=== PATIENT | female | born 1950 | race Caucasian/White ===

== ENCOUNTER 2019-07-18 12:45 | Inpatient (IN) | payer MEDICARE, OTHER ==
--- NOTE | 2019-07-13 16:39 | HP ---
AMENDED REPORT NOW INCLUDES DESIGNATED COSIGNER - ESIGNED BEFORE ADJUSTMENTS PREOPERATIVE HISTORY AND PHYSICAL: DATE OF ADMISSION/SURGERY: 07/18/19 SURGEON: Dr. Brigida Garnica.* (DICTATED BY JACK Ruth) PROCEDURE: Left total knee arthroplasty. CHIEF COMPLAINT: Left knee pain. HISTORY OF PRESENT ILLNESS: The patient is a 69-year-old female followed by Dr. Garnica with 3 years of knee pain. Over the last 6 months, this has become progressively worse to the point that she has difficulty walking more than 2 blocks. Her daily ache is 6/10, but with stair climbing or raising up out of a chair, it goes to a 10/10. She has tried conservative treatments such as a cane , brace wearing, antiinflammatories, physical therapy, and steroid injections without improvement and is seeking surgical intervention with Dr. Garnica at this time. PAST MEDICAL HISTORY: Hypertension, phlebitis, atrial fibrillation, asthma, osteoarthritis, thyroid issues, depression, and left lower extremity DVT. PAST SURGICAL HISTORY: Right knee arthroplasty in 2015, bilateral basal joint replacement, and diaphragmatic hernia repair. She denies anesthetic complication with any of these procedures. CURRENT MEDICATIONS: 1. Albuterol sulfate HFA 108 (90 base) mcg/act 2 puffs by mouth p.r.n. 2. Vitamin D3 50,000 units 1 capsule by mouth once weekly. 3. Calcium 600 mg 2 tabs by mouth daily. 4. EpiPen 2-Pankaj 0.3 mg/0.3 mL p.r.n. anaphylaxis. 5. Lexapro 20 mg 1 tab by mouth daily. 6. Lisinopril 20 mg 1 tab by mouth daily. 7. Montelukast sodium 10 mg 1 tab by mouth daily. 8. Omeprazole 20 mg 1 tab by mouth daily. 9. Pramipexole dihydrochloride 0.5 mg 1 tab by mouth q.h.s. 10. DILT-XR 120 mg 1 tab by mouth daily. 11. Symbicort 160/4.5 mcg/act 1 puff twice daily. 12. Synthroid 175 mcg 1 tab by mouth daily. 13. Vitron-C 65/125 mg 1 tab by mouth every day x6 months. 14. Alprazolam 1 mg take one half to 1 tab twice daily as needed. ALLERGIES: ERYTHROMYCIN and KEFLEX cause anaphylaxis. FAMILY HISTORY: Positive for diabetes, heart disease, and cancer. SOCIAL HISTORY: She lives with her spouse who will care for her postoperatively. She is a retired Medicare specialist. She denies tobacco, alcohol, or recreational drug use and exercises on a normal basis. REVIEW OF SYSTEMS: Fourteen systems were reviewed with the patient today and were positive for left knee pain and swelling, shortness of breath, fatigue, easy bleeding and bruising, and depression. Otherwise, all systems are negative. PHYSICAL EXAMINATION GENERAL: She is a well-developed, well-nourished female, seated on exam table, in no acute distress with appropriate affect. VITAL SIGNS: Height 64 inches, weight 255 pounds. Pulse 68, blood pressure 120 /60. HEENT: Normocephalic, atraumatic. Hearing and vision are grossly intact with extraocular movements intact. NECK: Trachea is midline and symmetrical. CHEST: Lungs are clear to auscultation with no wheezes, rales, or rhonchi appreciated. CARDIO: Regular rate and rhythm. Normal S1, S2. No murmurs, rubs, or gallops noted. ABDOMEN: Nondistended. Bowel sounds present. GENITOURINARY: Deferred. MUSCULOSKELETAL: Left lower extremity: Skin is pink, dry, and intact with no abrasions or open wounds. There is moderate effusion of the knee with tenderness along the medial joint line. She extends the knee to 10 degrees, flexes to 110 with discomfort. No varus or valgus instability. There is varus deformity to the knee. She has active range of motion in 4 planes in left knee with intact sensation and 2+ dorsalis pedis pulse. IMAGING: X-rays performed previously show severe end-stage osteoarthritis with medial [id number]-[id number] contact. There is tricompartmental joint space narrowing, osteophyte formation, and subchondral sclerosis. ASSESSMENT: Left knee severe end-stage osteoarthritis. PLAN: Left total knee arthroplasty with Dr. Garnica. The patient's questions were answered and she would like to proceed. Dr. Garnica reviewed the potential risk and complications with the patient today. The patient can follow up postoperatively and pain medication will be dispensed postoperatively. JACK RUTH [id number]/[facility] #: [id number] MTDJavon
[~2019-07-18 12:45] MED LIST: Acetaminophen TAB* 325 MG PO ONE; Buffered Lidocaine 1% SYRIN* 1 ML/SYRINGE INTRADERM ONE; Dexamethasone TAB* 4 MG PO ONE; DiMENhydriNATE IV* 50 MG/ML VIAL IV PUSH PRN; Famotidine IV* 10 MG/ML 2 ML (20 mg) IV ONE; Gabapentin CAP(*) 300 MG PO ONE; HYDROmorphone INJ1* 1 MG/ML SYRINGE IV PRN; KETAMINE HCL* 50 MG/ML 10 ML VIAL ONE; Lactated Ringers 1000 ML Bag* 1,000 ML IV SCH; Midazolam* 1 MG/ML 10 ML VIAL (10 MG) ONE; Naloxone* 0.4 MG/ML 1 ML VIAL IV PRN; Ondansetron ODT TAB* 4 MG PO ONE; PROCHLORPERAZINE INJ 5 MG/ML 2 ML VIAL IV PRN; fentaNYL* 50 MCG/ML 2 ML VIAL (100 MCG VIAL) IV PRN; fentaNYL* 50 MCG/ML 2 ML VIAL (100 MCG VIAL) ONE; oxyCODONE TAB* 5 MG TAB PO PRN
--- OUTSIDE RECORDS SUMMARY | 2019-07-18 12:48 | XMS REPORT | Continuity of Care Document ---
:1950 External Reference #:[id number] Author Name Brigida Garnica M.D. (transmitted by agent of provider Lakia Connell) Address [address] [place] [address] [place] [address] Care Team Providers Name Role Phone Suzie Arreaga, DO - Internal Care Team Information Welder Helper Medicine Problems Active Problems Provider Date Localized, primary osteoarthritis Brigida Garnica M.D. Onset: 06/02/2019 Social History Type Date Description Comments Sex Unknown ETOH Use Denies alcohol use Tobacco Use Start: Unknown Patient has never smoked Smoking Status Reviewed: 07/10/19 Patient has never smoked Exercise Type/Frequency Exercises regularly Allergies, Adverse Reactions, Alerts Active Allergies Reaction Severity Comments Date Erythromycin 06/02/2019 Keflex 06/02/2019 Medications Active Medications SIG Qnty Indications Ordering Date Provider Albuterol Sulfate HFA Unknown 108(90Base) mcg/Act Aerosol Vitamin D3 take 1 capsule by Unknown [id number] Capsules mouth once weekly Calcium 600 2 by mouth every Unknown 600mg Tablets day Epipen 2-Pankaj use as directed Unknown 0.3mg/0.3ML Solution Auto-Inject Lexapro 1 by mouth every Unknown 20mg Tablets day Lisinopril 1 by mouth every Unknown 20mg Tablets day Montelukast Sodium 1 by mouth every Unknown 10mg day Tablets Omeprazole 1 by mouth every Unknown 20mg Capsules DR day Pramipexole 1 tab by mouth Unknown Dihydrochloride every night at 0.5mg Tablets bedtime Dilt-XR 1 by mouth every Unknown 120mg Caps ER 24HR day Symbicort 1 puff twice a Unknown 160-4.5mcg/Act day Aerosol Synthroid 1 by mouth every Unknown 175mcg Tablets day Vitron-C 1 by mouth every Unknown 65-125mg Tablets day x 6 months Alprazolam take 1/2-1 tablet Unknown 1mg Tablets twice daily as needed Immunizations Description No Information Available Vital Signs Date Vital Result Comment 07/10/2019 11:56am Height 64 inches 5'4" Weight 255.00 lb Heart Rate 68 /min BP Systolic 120 mmHg BP Diastolic 60 mmHg Body Temperature 98.5 F Pain Level 8 BMI (Body Mass Index) 43.8 kg/m2 06/02/2019 10:38am Height 64 inches 5'4" Weight 256.00 lb Heart Rate 70 /min BP Systolic 126 mmHg BP Diastolic 72 mmHg Respiratory Rate 14 /min Pain Level 6 BMI (Body Mass Index) 43.9 kg/m2 Results Test Date Facility Test Result H/L Range Note CBC Auto 07/10/2019 [facility] White Blood 7.0 10^3/uL Normal 3.5-10.[address] [place] [address] [phone] Red Blood Count 4.34 10^6/uL Normal 3.70-4.87 Hemoglobin 12.7 g/dL Normal 12.0-16.0 Hematocrit 39 % Normal 35-47 Mean Corpuscular Volume 89 fL Normal 80-97 Mean Corpuscular Hemoglobin 29 pg Normal 27-31 Mean Corpuscular HGB Conc 33 g/dL Normal 31-36 Red Cell Distribution Width 15 % Normal 10-15 Platelet Count 283 10^3/uL Normal 150-450 Mean Platelet Volume 8.0 fL Normal 7.4-10.4 Abs Neutrophils 4.2 10^3/uL Normal 1.5-7.7 Abs Lymphocytes 1.8 10^3/uL Normal 1.0-4.8 Abs Monocytes 0.6 10^3/uL Normal 0-0.8 Abs Eosinophils 0.3 10^3/uL Normal 0-0.6 Abs Basophils 0.1 10^3/uL Normal 0-0.2 Abs Nucleated RBC 0.0 10^3/uL Granulocyte % 60.1 % Lymphocyte % 26.1 % Monocyte % 8.5 % Eosinophil % 4.4 % Basophil % 0.9 % Nucleated Red Blood Cells % 0.1 Urinalysis Profile 07/10/2019 [facility] Urine Color Yellow [address] [place] [address] [phone] Urine Appearance Cloudy Urine Specific [place] 1.021 Normal 1.010-1.030 Urine pH 6.0 Normal 5-9 Urine Urobilinogen Negative Negative Urine Ketones Trace Abnormal Negative Urine Protein Negative Negative Urine Leukocytes Negative Negative Urine Blood Negative Negative Urine Nitrite Negative Negative Urine Bilirubin Negative Negative Urine Glucose Negative Negative Inr/Protime 07/10/2019 [facility] Inr 0.93 Normal 0.82-1.09 1 [address] [place] [address] [phone] Laboratory test 07/10/2019 [facility] Partial 32.6 Normal 26.0 -38.0 finding 101 [facility] [place] [address] Time PTT [phone] Type & Screen 07/10/2019 [facility] Patient O Positive 101 [facility] [place] [address] [phone] Antibody Screen NEGATIVE Comp Metabolic 07/10/2019 [facility] Sodium 140 mmol/L Normal 135-145 Panel 101 [place] [address] [phone] Potassium 4.9 mmol/L Normal 3.5-5.0 Chloride 106 mmol/L Normal 101-111 Co2 Carbon Dioxide 27 mmol/L Normal 22-32 Anion Gap 7 mmol/L Normal 2-11 Glucose 98 mg/dL Normal 70-100 Blood Urea Nitrogen 19 mg/dL Normal 6-24 Creatinine 0.74 mg/dL Normal 0.51-0.95 BUN/Creatinine Ratio 25.7 High 8-20 Calcium 9.5 mg/dL Normal 8.6-10.3 Total Protein 6.3 g/dL Low 6.4-8.9 Albumin 4.0 g/dL Normal 3.2-5.2 Globulin 2.3 g/dL Normal 2-4 Albumin/Globulin Ratio 1.7 Normal 1-3 Total Bilirubin 0.30 mg/dL Normal 0.2-1.0 Alkaline Phosphatase 78 U/L Normal 34-104 Alt 13 U/L Normal 7-52 Ast 17 U/L Normal 13-39 Egfr Non- 77.6 >60 Egfr 93.9 >60 2 Urine Culture And 07/10/2019 [facility] Urine Culture SEE RESULT [address] [place] [address] [phone] 1 Standard intensity warfarin therapeutic range: 2.0-3.0 High intensity warfarin therapeutic range: 2.5-3.5 2 Because ethnic data is not always readily available, this report includes an eGFR for both -Americans and non- Americans. The National Kidney Disease Education Program (NKDEP) does not endorse the use of the MDRD equation for patients that are not between the ages of 18 and 70, are , have extremes of body size, muscle mass, or nutritional status, or are non- or non-. According to the National Kidney Foundation, irrespective of diagnosis, the stage of the disease is based on the level of kidney function: Stage Description GFR(mL/min/1.73 m(2)) 1 Kidney damage with normal or decreased GFR 90 2 Kidney damage with mild decrease in GFR 60-89 3 Moderate decrease in GFR 30-59 4 Severe decrease in GFR 15-29 5 Kidney failure <15 (or dialysis) 3 SEE RESULT BELOW Name: JAKYBRETMARCO LONGO : [address]: Brigida Garnica MD Acct: [id number] Unit: [id number] AGE: 69 Location: [facility] Re07/10/19 SEX: F Status: REG REF SPEC: [id number] SHARON: 07/10/19-1416 [facility] DR: Brigida Garnica MD REQ: [id number] RECD: 07/10/19 STATUS: PATRICIA TUCKER DR: Savita Primary Care Phys,NOPCP _ SOURCE: URINE SPDESC: ORDERED: Urine Culture Procedure Result Reported Site Urine Culture Final 07/11/19- 1332 ML No growth of clinically significant organisms * ML - Main Lab . END OF REPORT DEPARTMENT OF PATHOLOGY, [address] [place] [address] Hayden Ferreira M.D. Director [facility] # [id number] Procedures Description No Information Available Medical Devices Description No Information Available Encounters Type Date Location Provider Dx Diagnosis Office Visit 06/02/2019 Orthopedic Brigida Garnica, M25.562 Pain in left knee 10:00a [facility].Crescencio Goodwin M25.462 Effusion, left knee M17.12 Unilateral primary osteoarthritis, left knee Assessments Date Code Description Provider 06/02/2019 M25.562 Pain in left knee Brigida Garnica M.D. 06/02/2019 M25.462 Effusion, left knee Brigida Garnica M.D. 06/02/2019 M17.12 Unilateral primary osteoarthritis, left knee Brigida Garnica M.D. Plan of Treatment Future Appointment(s):07/31/2019 2:45 pm - Brigida Garnica M.D. at [facility].A.07/18/2019 4:00 pm - Jaren Smith PA-C at [facility]..07/18/2019 4:00 pm - ROSY Jasso at [facility].A.07/18/2019 4:00 pm - Brigida Garnica M.D. at [facility]. Functional Status Description No Information Available Mental Status Description No Information Available Referrals Description No Information Available
--- OUTSIDE RECORDS SUMMARY | 2019-07-18 12:49 | XMS REPORT | Continuity of Care Document ---
:1950 External Reference #:[id number] Author Name Brigida Garnica M.D. (transmitted by agent of provider Janae Carpio) Address [address] [place] [address] [place] [address] Care Team Providers Name Role Phone Suzie Arreaga, DO - Internal Care Team Information Diet Supervisor Medicine Problems Active Problems Provider Date Localized, [...] Vitamin D3 take 1 capsule by Unknown [id number] Capsules mouth once weekly Calcium 600 2 [...] BMI (Body Mass Index) 43.9 kg/m2 Results Description No Information Available Procedures Description No Information Available Medical Devices Description No Information Available Encounters Type Date Location Provider Dx Diagnosis Office Visit 06/02/2019 Orthopedic Brigida Garnica, M25.562 [facility].462 Effusion, left knee M17.12 Unilateral primary osteoarthritis, left knee Assessments Date Code Description Provider 06/02/2019 M25.562 Pain in left knee Brigida Garnica M.D. 06/02/2019 M25.462 Effusion, left knee Brigida Garnica M.D. 06/02/2019 M17.12 Unilateral primary osteoarthritis, left knee Brigida Garnica M.D. Plan of Treatment Future Appointment(s):07/18/2019 4:00 pm - Jaren Smith PA-C at [facility]..07/18/2019 4:00 pm - ROSY Jasso at [facility].07/18/2019 4:00 pm - Brigida Garnica M.D. at [facility]. Functional Status Description No Information Available Mental Status Description No Information Available Referrals Description No Information Available
[2019-07-18] MEDS ORDERED: Gabapentin CAP(*) 300 MG ONE (13:15)
[2019-07-18] MEDS ORDERED: Ondansetron ODT TAB* 4 MG ONE (13:15)
[2019-07-18] MEDS ORDERED: Clindamycin 900 MG/D5W BAG(*) 900 MG/50 ML BAG IVPB ONE (13:16)
[2019-07-18] MEDS ORDERED: Famotidine IV* 10 MG/ML 2 ML (20 mg) ONE (13:16)
[2019-07-18] MEDS ORDERED: Dexamethasone TAB* 4 MG ONE (13:16)
[2019-07-18] MEDS ORDERED: Acetaminophen TAB* 325 MG ONE (13:16)
[2019-07-18] MEDS ORDERED: Gabapentin CAP(*) 100 MG ONE (13:17)
[2019-07-18] MEDS ORDERED: Gabapentin CAP(*) 400 MG PO ONE (13:17)
[2019-07-18] MEDS ORDERED: ROPIVACAINE 5 MG/ML 30 ML BTL (0.5%) ONE (14:46)
[2019-07-18] MEDS ORDERED: Rocuronium* 10 MG/ML VIAL ONE (15:09)
[2019-07-18] MEDS ORDERED: fentaNYL* 50 MCG/ML 2 ML VIAL (100 MCG VIAL) ONE (15:52)
[2019-07-18] MEDS ORDERED: hydrALAZINE IV* 20 MG/ML VIAL ONE (15:57)
[2019-07-18] MEDS ORDERED: Metoprolol Tartrate IV* 1 MG/ML 5 ML VIAL ONE (15:57)
[2019-07-18] MEDS ORDERED: HYDROmorphone INJ1* 1 MG/ML SYRINGE ONE (17:00)
[2019-07-18] MEDS ORDERED: EPHEDrine (Pressors)* 50 MG/ML VIAL ONE (17:02)
[2019-07-18] MEDS ORDERED: Ketorolac INJ* 30 MG/ML 1 ML VIAL ONE (17:02)
[2019-07-18] MEDS ORDERED: Propofol* 10 MG/ML 20 ML BTL ONE (17:02)
[2019-07-18] MEDS ORDERED: Glycopyrrolate IV* 0.2 MG/ML 1 ML VIAL ONE (17:02)
[2019-07-18] MEDS ORDERED: Magnesium Hydroxide LIQ* 30 ML UDC PO PRN (18:00)
[2019-07-18] MEDS ORDERED: diPHENhydraMINE PO* 25 MG PO PRN (18:00)
[2019-07-18] MEDS ORDERED: oxyCODONE/Acetamin 5/325 MG* TAB PO PRN (18:00)
[2019-07-18] MEDS ORDERED: Ondansetron INJ* 2 MG/ML VIAL IV PRN (18:00)
[2019-07-18] MEDS ORDERED: Ondansetron ODT TAB* 4 MG PO PRN (18:00)
[2019-07-18] MEDS ORDERED: diPHENhydraMINE IV* 50 MG/ML 1 ml VIAL (BENADRYL) IV PRN (18:00)
[2019-07-18] MEDS ORDERED: Cyclobenzaprine TAB* 10 MG PO PRN (18:00)
[2019-07-18] MEDS ORDERED: Lactated Ringers 1000 ML Bag* 1,000 ML IV SCH (18:00)
[2019-07-18] MEDS ORDERED: EPINEPHRINE 1 MG/ML 1 ML VIAL IM PRN (18:22)
[2019-07-18] MEDS ORDERED: Albuterol HFA INHALER* 8 gm MDI INH PRN (18:22)
--- NOTE | 2019-07-18 19:38 | OP ---
Operative Report - Blank - Operative Report Date of Operation: 07/18/19 Note: MARCO SMITH 1950 Date of Surgery: 07/18/19 Brigida Garnica MD Spring Coiling Machine Setter: Elvin SANTIAGO did help throughout the procedure with preparation of the knee, wound retraction, manipulation of the knee, and wound closure. Anesthesiologist: Feroz Light MD Anesthesia Type: General Preoperative Diagnosis: Left severe degenerative osteoarthritis of the knee Postoperative Diagnosis: As above Procedure Performed: Left Total Knee Arthroplasty Tourniquet time: 44 minutes Complications: None Specimen: Bone and cartilage from the left knee joint sent to pathology. Hardware Used: Cemented Carpio [employer] Nephew total knee hardware was used - For the femur a size 6 left legion posterior stabilized femoral component, for the tibia a size 6 left monique II tibial baseplate, for the insert a size 9mm 5-6 posterior stabilized articular polyethylene insert, and for the patella a size 32 3-peg all poly patella. Brief History/Indication: MARCO SMITH was known in clinic and had a history of severe left knee pain and swelling. She failed conservative treatment with anti-inflammatories, pain pills, intra-articular injections and physical therapy. She elected to undergo left total knee arthroplasty due to continued pain and decreased quality of life. Radiographs showed severe end stage osteoarthritis of the knee with bone on bone contact. Informed consent was obtained from the patient. She understood the risks of surgery included but were not limited to: bleeding, infection, damage to nearby structures, intraoperative fracture, nerve palsy, failure of the hardware, early loosening, knee stiffness or loss of motion, anesthesia complications, stroke, heart attack , blood clot and . She wished to proceed. Intra-Operative Findings: Intraoperatively the patient was noted to have severe loss of cartilage in all 3 compartments of the knee. Description of the Procedure: MARCO SMITH was identified in the preanesthesia unit. Her left knee was marked as the correct operative side. Informed consent was signed and placed in the chart. The patient was taken to the operating room and placed under anesthesia without complication. A huang catheter was placed. A tourniquet was placed on the left thigh. The left lower extremity was prepped and draped in the usual sterile fashion. Preoperative time-out was made to correctly identify the patient, side and site. Appropriate intraoperative antibiotics were given within one hour of incision. Tourniquet was inflated. A midline incision was made and carried sharply down to the extensor mechanism. A new 10 blade was used to make a standard medial parapatellar arthrotomy. The patella was subluxed laterally. Electrocautery was used to dissect soft tissue off the superomedial tibia to the midsagittal plane. The knee was flexed up. The anterior horn of the lateral meniscus and the ACL were sharply incised. A drill was used to enter the distal femur. The intramedullary distal femoral cutting guide was pinned on the distal femur. The oscillating saw was used to make the distal femoral cut. The external rotation guide was pinned on the distal femur and the distal femur was sized to a size 6. The size 6 multi-cutting jig was pinned on the distal femur. The oscillating saw was used to make the appropriate 4 chamfer cuts. Next the PCL was completely released. The extramedullary tibial cutting guide was pinned on the proximal tibia and the oscillating saw was used to make the proximal tibial cut perpendicular to the mechanical axis of the tibia. The bone was carefully removed. The knee was brought out into full extension. The spacer block was placed and had excellent fit with the knee in full extension. The medial and lateral ligaments were well balanced. The flexion and extension gaps were well balanced. The knee was flexed up. Lamina silk soaker was placed both medially and laterally. Any remaining meniscus was removed with electrocautery. Curved osteotome was used to remove any posterior osteophytes. The tibial tray and drop evelia were placed and confirmed a satisfactory tibial cut. The size 6 left femoral trial was impacted onto the distal femur. This trial had excellent fit and stability. The box for the posterior stabilized implant was prepared using a box cut osteotome and a reamer. Next a tibial tray trial and 9 mm insert trial was placed. The knee was taken through a range of motion and had full extension to 130 degrees of flexion. Patellofemoral tracking was satisfactory. The patella was inverted and sized to a size 32. Three peg holes were drilled through the size 32 drill guide. The trial patella was placed and the knee was taken through a range of motion. There was satisfactory patellofemoral tracking. All trials were removed. The tibia was subluxed anteriorly and sized to a size 6. The proximal tibial was prepared with a size 6 keel punch. All bony cut surfaces were irrigated with sterile saline and dried. Final implants were cemented into place starting with the tibia, followed by the femur, and last the patella. A 9 mm insert trial was placed and the knee was brought into full extension. Tourniquet was turned down and the knee was copiously irrigated with sterile saline. Electrocautery was used to obtain meticulous hemostasis. Once the cement had fully cured, the insert trial was removed. Any excess cement was removed from around the hardware and capsule. Final insert chosen was a 9 mm posterior stabilized Monique II articular insert size 5-6. Stability of the insert was checked and noted to be stable. The extensor mechanism was closed using number 1 vicryls. The rest of the incision was closed in a layered fashion using 0 and 2-0 vicryls. The skin was closed using 3-0 nylon suture. Sterile xeroform, 4x4s and webril were used to cover the incision. Mikal wrap and cold pack were used to cover the dressings. The patients anesthesia was reversed without difficulty. She was taken to the PACU in stable condition. Intended weight-bearing will be as tolerated.
--- NOTE | 2019-07-18 22:43 | CONS ---
CC: Dr. Suzie Arreaga; Dr. Brigida Garnica * CONSULTATION REPORT: DATE OF CONSULT: 07/18/19 REFERRING PHYSICIAN: Dr. Brigida Garnica. REASON FOR CONSULTATION: Medical management postoperatively. HISTORY OF PRESENT ILLNESS: This is a 69-year-old female with history of hypertension, AFib, asthma, osteoarthritis, Eliot thyroiditis, depression, previous history of lower extremity DVT, was admitted electively for left total knee arthroplasty. She tolerated the procedure well. Prior to the surgery, the patient was apparently noted to be hypertensive and was given some blood pressure medications and postoperatively the patient's blood pressure was noted to be systolic in the 90s and the patient was minimally dizzy, but other than this the patient did not have any chest pain, any shortness of breath. She feels that her lungs are fine. She denied any complaints other than some minimal pain that she had at the surgical site and also some thirst that she was complaining of and was drinking water. She otherwise offers no complaints. PAST MEDICAL HISTORY: As mentioned hypertension, AFib, asthma, osteoarthritis, Eliot thyroiditis, depression, lower extremity DVT, and recent sleep study for possible obstructive sleep apnea, but the patient has not had results of this study yet. PAST SURGICAL HISTORY: Includes right total knee arthroplasty in 2015, bilateral basal joint replacement, diaphragmatic hernia repair. FAMILY HISTORY: Noncontributory at her age of 69, but there is a family history for diabetes, heart disease, and cancer. SOCIAL HISTORY: The patient was with her spouse and is full code and her spouse will help with the postop care. Denies any smoking, alcohol, or drug use. Otherwise, she is very active with gardening. She is a retired medicare specialist. CURRENT MEDICATIONS: Include: 1. Tylenol. 2. Albuterol. 3. Eliquis. 4. Bisacodyl. 5. Calcium. 6. Clindamycin. 7. Cyclobenzaprine. 8. Dexamethasone. 9. Diltiazem. 10. Diphenhydramine. 11. Docusate. 12. Epinephrine p.r.n. 13. Escitalopram. 14. Famotidine. 15. Fentanyl. 16. Gabapentin. 17. Hydromorphone. 18. Iron. 19. Vitamin C complex. 20. Lactulose. 21. Levothyroxine. 22. Lisinopril/hydrochlorothiazide. 23. Magnesium hydroxide. 24. Montelukast. 25. Morphine. 26. Omeprazole. 27. Zofran. 28. Oxycodone. 29. Pramipexole. 30. Prochlorperazine. 31. Vitamin D3. ALLERGIES: The patient allergic to ERYTHROMYCIN and KEFLEX, both of which cause anaphylaxis. REVIEW OF SYSTEMS: A 14-point review of systems was negative for the patient other than what is stated in the HPI. PHYSICAL EXAMINATION: Vital Signs: In the PACU unit shows BP of 118/70, heart rate 63, respiration rate 19, saturating 97% on 3 L nasal cannula, temperature was 98.6. In general, the patient is awake, alert, oriented x3, did not appear to be in any acute respiratory distress. Head and Neck Examination: Atraumatic , normocephalic. Bilateral pupils are reactive. Oral mucosa was moist. Neck: Supple. No jugular venous distention. Heart Examination: S1, S2. Regular rate and rhythm. Lungs: Clear to auscultation bilaterally. No wheezing, rhonchi, or rales. Abdomen: Soft, nontender, nondistended. Extremities: The patient did have surgical dressings on the left knee, which is in an immobilization cast with minimal tenderness. DIAGNOSTIC STUDIES/LAB DATA: No labs to review. IMPRESSION: This is a 69-year-old female with multiple medical problems including hypertension, atrial fibrillation, asthma, Eliot thyroiditis, left lower extremity DVT, depression here for left total knee arthroplasty, which was successfully performed, was noted to be minimally hypotensive and hypoxic postoperatively. ASSESSMENT AND PLAN: 1. Hypoxia and minimal hypotension likely related to the patient getting pain medication and given that the patient also has possible obstructive sleep apnea. For now, we can still monitor the patient in surgical care unit with telemetry and tidal CO2 to monitor her respiration more closely and also monitor her continuous pulse ox and titrate oxygen accordingly. We will also place holding parameters on her home blood pressure medications that are restarted and perform a basic metabolic panel and CBC in the morning. 2. History of hypertension. As mentioned, placed holding parameters on these medication. 3. History of DVT. The patient is already on Eliquis. 4. History of asthma, on nebulizations. 5. History of Eliot thyroiditis with hypothyroidism on thyroid replacement medications. 6. History of atrial fibrillation on anticoagulation and currently rate controlled. 7. History of depression on her antidepression medications. 8. Code status. The patient is currently full code with her being the healthcare proxy. Thank you very much for this consultation. We will be happy to follow the patient with Dr. Brigida Garnica. [id number]/CPS #: [id number] KATIA
[2019-07-18] MEDS: Clindamycin 600 MG/D5W BAG(*) 600 MG/50 ML BAG IV SCH (23:39)
[2019-07-18] MEDS: Lisinopril TAB* 10 MG PO SCH (23:40)
[2019-07-18] MEDS: Acetaminophen TAB* 325 MG PO SCH (23:41)
[2019-07-18] MEDS: Calcium Carbonate TAB* 1250 MG (CALCIUM 500 MG) PO SCH (23:41)
[2019-07-18] MEDS: Escitalopram * 20 MG TABLET PO SCH (23:42)
[2019-07-18] MEDS: Docusate CAP* 100 MG PO SCH (23:42)
[2019-07-18] MEDS: oxyCODONE/Acetamin 5/325 MG* TAB PO PRN (23:42)
[2019-07-18] MEDS: Pramipexole TAB* 0.5 MG PO SCH (23:42)
[2019-07-18] MEDS: Magnesium Hydroxide LIQ* 30 ML UDC PO SCH (23:43)
[2019-07-19 05:57] LABS: ABS Lymphocytes 0.9 10^3/ul (1.0-4.8); ABS Monocytes 0.8 10^3/ul (0-0.8); Hematocrit 33 % (35-47); Hemoglobin 10.8 g/dL (12.0-16.0); Lymphocyte % 7.5 %; Mean Corpuscular HGB Conc 32 g/dL (31-36); Mean Corpuscular Hemoglobin 29 pg (27-31); Mean Corpuscular Volume 89 fL (80-97); Mean Platelet Volume 7.7 fL (7.4-10.4); Platelet Count 251 10^3/uL (150-450); Red Blood Count 3.75 10^6 /uL (3.70-4.87); Red Cell Distribution Width 15 % (10-15); White Blood Count 11.6 10^3/uL (3.5-10.8)
[2019-07-19] MEDS: Levothyroxine TAB* 175 MCG TAB PO SCH (06:01)
[2019-07-19] MEDS: Acetaminophen TAB* 325 MG PO SCH ×3 (06:01→22:14)
[2019-07-19 06:15] LABS: BUN/Creatinine Ratio 21.1 (8-20); Calcium 8.8 mg/dL (8.6-10.3); EGFR African American 74.9 (>60); EGFR Non-African American 61.9 (>60); Potassium 4.8 mmol/L (3.5-5.0)
[2019-07-19] MEDS ORDERED: NS 0.9% 1000 ML** 1,000 ML IV ONE (07:19)
[2019-07-19] MEDS: oxyCODONE/Acetamin 5/325 MG* TAB PO PRN ×2 (08:31→19:42)
[2019-07-19] MEDS ORDERED: DILTIAZEM HCL 120 MG PO SCH (09:00)
[2019-07-19] MEDS ORDERED: Lisinopril/HCTZ 20/12.5(NF) TAB PO SCH (09:00)
[2019-07-19] MEDS: Magnesium Hydroxide LIQ* 30 ML UDC PO SCH ×2 (09:12→22:12)
[2019-07-19] MEDS: Pantoprazole TAB * 40 MG TAB PO SCH (09:13)
[2019-07-19] MEDS: Diltiazem CD CAP* 120 MG PO SCH (09:13)
[2019-07-19] MEDS: Calcium Carbonate TAB* 1250 MG (CALCIUM 500 MG) PO SCH ×2 (09:13→22:10)
[2019-07-19] MEDS: Docusate CAP* 100 MG PO SCH ×2 (09:13→22:10)
[2019-07-19] MEDS: Vitamin THERAPEUTIC TAB PO SCH (09:13)
[2019-07-19] MEDS: Apixaban* 2.5 MG TAB PO SCH ×2 (09:13→22:11)
[2019-07-19] MEDS: Montelukast Sodium TAB* 10 MG PO SCH (09:13)
[2019-07-19] MEDS: Clindamycin 600 MG/D5W BAG(*) 600 MG/50 ML BAG IV SCH ×2 (09:14→15:12)
[2019-07-19] MEDS: Hydrochlorothiazide TAB* 25 MG PO SCH (09:24)
[2019-07-19] MEDS: Lisinopril TAB* 10 MG PO SCH ×2 (09:24→22:37)
--- NOTE | 2019-07-19 09:53 | PN ---
Progress Note - Progress Note Date of Service: 07/19/19 SOAP: Subjective: []Pt seen and examined at bedside, she is feeling well this morning. Pain is well controlled.Overnight she was hypotensive with SBP in the 80s. This morning IV fluid bolus was given and systolic BP has been in the high 90s. She denies CP , SOB, dizziness or nausea. Has a hx DVT. Objective: []Gen: Appears well, NAD LLE: left knee dressing CDI, thigh is soft and nontender Assessment: []POD 1 sp LTK Plan: []WBAT PT/OT eliquis 2.5 mg po bid x 30 days post op appreciate Hosp consult for [employer] requires 3 day stay, requesting rehab in [facility] to start placement Vital Signs Temp 97.5 F 07/19/19 08:06 Pulse 90 07/19/19 08:06 Resp 18 07/19/19 08:41 BP 99/49 07/19/19 08:06 Pulse Ox 99 07/19/19 08:41 Intake & Output 07/18/19 07/19/19 07/19/19 18:59 06:59 18:59 Intake Total 2250 1300 1883 Output Total 150 650 Balance 2100 650 1883 Weight 250 lb Intake: IV Fluids 2250 800 1828 CLINDAMYCIN 900MG 50ML 50 LR 2200 800 850 NS (0.9%) 978 IVPB 55 ABX - CEFAZOLIN 55 Oral 500 Output: Nelson 150 400 Estimated Blood Loss 250 Laboratory Last Values WBC 11.6 10^3/uL (3.5-10.8) H 07/19/19 05:34 RBC 3.75 10^6 /uL (3.70-4.87) 07/19/19 05:34 Hgb 10.8 g/dL (12.0-16.0) L 07/19/19 05:34 Hct 33 % (35-47) L 07/19/19 05:34 MCV 89 fL (80-97) 07/19/19 05:34 MCH 29 pg (27-31) 07/19/19 05:34 MCHC 32 g/dL (31-36) 07/19/19 05:34 RDW 15 % (10-15) 07/19/19 05:34 Plt Count 251 10^3/uL (150-450) 07/19/19 05:34 MPV 7.7 fL (7.4-10.4) 07/19/19 05:34 Neut % (Auto) 85.8 % 07/19/19 05:34 Lymph % (Auto) 7.5 % 07/19/19 05:34 [place] % (Auto) 6.5 % 07/19/19 05:34 Eos % (Auto) 0.0 % 07/19/19 05:34 Baso % (Auto) 0.2 % 07/19/19 05:34 Absolute Neuts (auto) 10.0 10^3/ul (1.5-7.7) H 07/19/19 05:34 Absolute Lymphs (auto) 0.9 10^3/ul (1.0-4.8) L 07/19/19 05:34 Absolute Monos (auto) 0.8 10^3/ul (0-0.8) 07/19/19 05:34 Absolute Eos (auto) 0.0 10^3/ul (0-0.6) 07/19/19 05:34 Absolute Basos (auto) 0.0 10^3/ul (0-0.2) 07/19/19 05:34 Absolute Nucleated RBC 0.0 10^3/ul 07/19/19 05:34 Nucleated RBC % 0.0 07/19/19 05:34 Sodium 137 mmol/L (135-145) 07/19/19 05:34 Potassium 4.8 mmol/L (3.5-5.0) 07/19/19 05:34 Chloride 105 mmol/L (101-111) 07/19/19 05:34 Carbon Dioxide 27 mmol/L (22-32) 07/19/19 05:34 Anion Gap 5 mmol/L (2-11) 07/19/19 05:34 BUN 19 mg/dL (6-24) 07/19/19 05:34 Creatinine 0.90 mg/dL (0.51-0.95) 07/19/19 05:34 Est GFR ( Amer) 74.9 (>60) 07/19/19 05:34 Est GFR (Non-Af Amer) 61.9 (>60) 07/19/19 05:34 BUN/Creatinine Ratio 21.1 (8-20) H 07/19/19 05:34 Glucose 146 mg/dL (70-100) H 07/19/19 05:34 Calcium 8.8 mg/dL (8.6-10.3) 07/19/19 05:34
--- NOTE | 2019-07-19 10:15 | PN ---
Subjective Date of Service: 07/19/19 Interval History: Patient is feeling "groggy" today. Patient had a presyncopal episode when walking to the bathroom earlier, but did not pass out or fall. Patient denies CP , SOB, F/C, Abdominal pain, dysuria, anuria, or severe pain. Complains of no pain currently in LLE. Slight paresthesias in Left 4th and 5th toes which is chronic, No N/V, but not passing gas yet. Family History: Unchanged from Admission Social History: Unchanged from Admission Past Medical History: Unchanged from Admission Objective Active Medications: Acetaminophen (Tylenol Tab*) 975 mg PO Q8HR [facility] Last Admin: 07/19/19 06:01 Dose: 975 mg Albuterol (Ventolin Hfa Inhaler*) 1 puff INH Q4H PRN PRN Reason: SOB/WHEEZING Apixaban (Eliquis*) 2.5 mg PO BID [facility] Last Admin: 07/19/19 09:13 Dose: 2.5 mg Bisacodyl (Dulcolax Supp*) 10 mg [place] DAILY PRN PRN Reason: CONSTIPATION Calcium Carbonate (Calcium Carbonate Tab*) 1,250 mg PO BID [facility] Last Admin: 07/19/19 09:13 Dose: 1,250 mg Cholecalciferol (Vitamin D3 Cap/Tab (Nf)) 1 cap PO Metz [facility] Cyclobenzaprine HCl (Flexeril Tab*) 10 mg PO Q6H PRN PRN Reason: SPASMS Diltiazem HCl (Cardizem Cd Cap*) 120 mg PO QAM [facility] Last Admin: 07/19/19 09:13 Dose: Not Given Diphenhydramine HCl (Benadryl Iv*) 25 mg IV Q6H PRN PRN Reason: PRURITIS Diphenhydramine HCl (Benadryl Po*) 25 mg PO Q6H PRN PRN Reason: PRURITIS Docusate Sodium (Colace Cap*) 100 mg PO BID [facility] Last Admin: 07/19/19 09:13 Dose: 100 mg Epinephrine HCl (Adrenalin 1 Mg/Ml) 0.3 mg IM ONCE PRN PRN Reason: Allergy Symptoms Escitalopram Oxalate (Lexapro *) 20 mg PO BEDTIME [facility] Last Admin: 07/18/19 23:42 Dose: 20 mg Hydrochlorothiazide (Hydrodiuril Tab*) 12.5 mg PO QAM [facility] Last Admin: 07/19/19 09:24 Dose: Not Given Lactated Ringer's (Lactated Ringers 1000 Ml Bag*) 1,000 mls @ 100 mls/hr IV PER RATE [facility] Last Admin: 07/18/19 22:17 Dose: 100 mls/hr Clindamycin HCl/Dextrose (Cleocin 600 Mg/50 Ml(*)) 600 mg in 50 mls @ 100 mls/ hr IV Q8H [facility] Last Admin: 07/19/19 09:14 Dose: 100 mls/hr Iron/Vitamin C (Vitron-C (Nf)) 1 tab PO Q48H [facility] Lactulose (Lactulose*) 30 ml PO BID PRN PRN Reason: CONSTIPATION Levothyroxine Sodium (Synthroid Tab*) 200 mcg PO SuSa@0600 [facility] Levothyroxine Sodium (Synthroid Tab*) 175 mcg PO MoTuWeThFr@0600 [facility] Last Admin: 07/19/19 06:01 Dose: 175 mcg Lisinopril (Prinivil Tab*) 20 mg PO BEDTIME [facility] Last Admin: 07/18/19 23:40 Dose: Not Given Lisinopril (Prinivil Tab*) 20 mg PO QAM [facility] Last Admin: 07/19/19 09:24 Dose: Not Given Magnesium Hydroxide (Milk Of Magnesia Liq*) 30 ml PO BID [facility] Last Admin: 07/19/19 09:12 Dose: 30 ml Magnesium Hydroxide (Milk Of Magnesia Liq*) 30 ml PO Q6H PRN PRN Reason: CONSTIPATION Montelukast Sodium (Singulair Tab*) 10 mg PO QAM [facility] Last Admin: 07/19/19 09:13 Dose: 10 mg Morphine Sulfate (Morphine Inj (Syringe))*) 2 mg IV Q4H PRN PRN Reason: Pain - Unrelieved Multivitamins (Theragran Tab*) 1 tab PO DAILY [facility] Last Admin: 07/19/19 09:13 Dose: 1 tab Ondansetron HCl (Zofran Inj*) 4 mg IV Q6H PRN PRN Reason: NAUSEA Ondansetron HCl (Zofran Odt Tab*) 4 mg PO Q6H PRN PRN Reason: NAUSEA Oxycodone HCl (Roxycodone Tab*) 5 mg PO Q4H PRN PRN Reason: Pain - Breakthrough Oxycodone/Acetaminophen (Percocet 5/325 Tab*) 1 tab PO Q4H PRN PRN Reason: PAIN - MODERATE Oxycodone/Acetaminophen (Percocet 5/325 Tab*) 2 tab PO Q4H PRN PRN Reason: PAIN - SEVERE Last Admin: 07/19/19 08:31 Dose: 2 tab Pantoprazole Sodium (Protonix Tab*) 40 mg PO DAILY [facility] Last Admin: 07/19/19 09:13 Dose: 40 mg Pramipexole Dihydrochloride (Mirapex Tab*) 0.5 mg PO BEDTIME [facility] Last Admin: 07/18/19 23:42 Dose: 0.5 mg Vital Signs - 8 hr 07/19/19 07/19/19 07/19/19 03:33 04:00 06:00 Temperature 97.5 F Pulse Rate 53 Respiratory 17 14 14 Rate Blood Pressure 84/50 (mmHg) O2 Sat by Pulse 96 96 98 Oximetry 07/19/19 07/19/19 07/19/19 06:48 07:23 08:06 Temperature 97.5 F Pulse Rate 90 Respiratory 16 18 Rate Blood Pressure 95/52 99/49 (mmHg) O2 Sat by Pulse 97 Oximetry 07/19/19 07/19/19 07/19/19 08:31 08:41 09:55 Temperature Pulse Rate 47 Respiratory 18 18 Rate Blood Pressure 117/54 (mmHg) O2 Sat by Pulse 99 100 Oximetry Oxygen Devices in Use Now: None Appearance: Patient is a 69yo female who appears stated age and is sitting in the bed in [facility]. Eyes: No Scleral Icterus, PERRLA Ears/Nose/Mouth/Throat: NL Teeth, Lips, Gums, Clear Oropharnyx, Mucous Membranes Moist Neck: NL Appearance and Movements; NL JVP, Trachea Midline Respiratory: Symmetrical Chest Expansion and Respiratory Effort, Clear to Auscultation Cardiovascular: NL Sounds; No Murmurs; No JVD, RRR, - - 1+ LLE edema. Large Varices. Abdominal: NL Sounds; No Tenderness; No Distention, No Hepatosplenomegaly, - - Hypoactive Lymphatic: No Cervical Adenopathy Extremities: No Clubbing, Cyanosis Skin: No Nodules or Sclerosis, - - Left knee incision covered in a bulky dressing. Neurological: Alert and Oriented x 3, NL Sensation, NL Muscle Strength and Tone , - - CN II-XII intact. Result Diagrams: 07/19/19 05:34 07/19/19 05:34 Assess/Plan/Problems-Billing Assessment: Patient is a 69yo female with a PMH for recent diagnosis of STANLEY, Afib, History DVT, here S/P LTKA and had an episode of hypotension, but is otherwise doing well. - Patient Problems (1) Post-operative state Current Visit: Yes Status: Acute Code(s): Z98.890 - OTHER SPECIFIED POSTPROCEDURAL STATES SNOMED Code(s): 28221271 Comment: - Management per Orthopedics - PT/OT. Pain Control, Trend H/H, bowel regimen - Continue fluids at this time. (2) Hypotension Current Visit: Yes Status: Acute Comment: - Improving, previously symptomatic - Likely post-operative related - Very Low index of suspicion for PE at this point - Continue fluids, Hold antihypertensives. (3) STANLEY (obstructive sleep apnea) Current Visit: Yes Status: Acute Code(s): G47.33 - OBSTRUCTIVE SLEEP APNEA ( ADULT) (PEDIATRIC) SNOMED Code(s): 59217139 Comment: - Monitor capnography overnight again tonight - Follow up for Outpatient results of sleep study and fitting for CPAP/BiPAP (4) History of DVT (deep vein thrombosis) Current Visit: Yes Status: Acute Code(s): Z86.718 - PERSONAL HISTORY OF OTHER VENOUS THROMBOSIS AND EMBOLISM SNOMED Code(s): 989960557 Comment: - Provoked, in LLE - Likely cause of parestheias and large varices. - Continue Eliquis Post-op (5) Afib Current Visit: Yes Status: Acute Code(s): I48.91 - UNSPECIFIED ATRIAL FIBRILLATION SNOMED Code(s): 96750723 Comment: - Rate regular on Exam - Continue Eliquis. - Resume Diltiazem when BP will tolerate. (6) DVT prophylaxis Current Visit: Yes Status: Acute Code(s): Z29.9 - ENCOUNTER FOR PROPHYLACTIC MEASURES, UNSPECIFIED SNOMED Code(s): 456144302 Comment: - Eliquis (7) Full code status Current Visit: Yes Status: Acute Code(s): Z78.9 - OTHER SPECIFIED HEALTH STATUS SNOMED Code(s): 576955515 Status and Disposition: Disposition per Ortho.
[2019-07-19] MEDS: traMADol TAB* 50 MG PO PRN ×2 (12:00→18:12)
[2019-07-19] MEDS: Pramipexole TAB* 0.5 MG PO SCH (22:10)
[2019-07-19] MEDS: Escitalopram * 20 MG TABLET PO SCH (22:11)
[2019-07-19] MEDS: oxyCODONE TAB* 5 MG TAB PO PRN (22:11)
[2019-07-20] MEDS: oxyCODONE/Acetamin 5/325 MG* TAB PO PRN ×6 (00:02→22:52)
[2019-07-20] MEDS: traMADol TAB* 50 MG PO PRN ×3 (03:51→23:55)
[2019-07-20] MEDS: Morphine INJ* 2 MG/ML 1 ML SYRINGE (TWO MG - NEW SYRINGE VERSION) IV PRN ×2 (03:52→08:07)
[2019-07-20] MEDS: Acetaminophen TAB* 325 MG PO SCH ×3 (05:12→22:51)
[2019-07-20] MEDS: Levothyroxine TAB* 175 MCG TAB PO SCH (05:17)
[2019-07-20 06:55] LABS: Hematocrit 32 % (35-47); Hemoglobin 10.6 g/dL (12.0-16.0); Platelet Count 256 10^3/uL (150-450)
[2019-07-20] MEDS: oxyCODONE TAB* 5 MG TAB PO PRN ×4 (08:07→20:54)
[2019-07-20] MEDS: Calcium Carbonate TAB* 1250 MG (CALCIUM 500 MG) PO SCH ×2 (08:11→20:54)
[2019-07-20] MEDS: Magnesium Hydroxide LIQ* 30 ML UDC PO SCH ×2 (08:11→20:56)
[2019-07-20] MEDS: Montelukast Sodium TAB* 10 MG PO SCH (08:12)
[2019-07-20] MEDS: Hydrochlorothiazide TAB* 25 MG PO SCH (08:12)
[2019-07-20] MEDS: Apixaban* 2.5 MG TAB PO SCH ×2 (08:12→20:55)
[2019-07-20] MEDS: Pantoprazole TAB * 40 MG TAB PO SCH (08:12)
[2019-07-20] MEDS: Docusate CAP* 100 MG PO SCH ×2 (08:12→20:54)
[2019-07-20] MEDS: Vitamin THERAPEUTIC TAB PO SCH (08:12)
[2019-07-20] MEDS: Diltiazem CD CAP* 120 MG PO SCH (08:12)
[2019-07-20] MEDS: Lisinopril TAB* 10 MG PO SCH ×2 (08:12→20:54)
[2019-07-20] MEDS ORDERED: Influenza VAC *QUAD* 2019-20* 0.5 ML SYRINGE IM ONE (09:00)
[2019-07-20] MEDS ORDERED: IRON VITAMIN C PO SCH (09:00)
--- NOTE | 2019-07-20 09:51 | PN ---
Progress Note - Progress Note Date of Service: 07/20/19 SOAP: Subjective: []Pt seen and examined at bedside. She feels well without CP, SOB, dizziness, nausea Objective: []Gen: Appears well, NAD LLE: left knee dressing CDI, dressing changed by Dr Garnica this morning, she has some anterior knee redness consistent with hematoma no cellulitis, thigh is soft and nontender, df/pf intact, DP2+, sensation intact to light touch distally. Assessment: []POD 2 sp LTK Plan: []WBAT PT/OT eliquis 2.5 mg po bid x 30 days post op appreciate Hosp consult for med [employer] requires 3 day stay, requesting rehab in [facility]- rehab facility agrees to accept her IF bed is still available. Will have definitive answer tomorrow at 815. CM aware that backup plan for DC tomorrow is needed Vital Signs Temp 99.1 F 07/20/19 07:50 Pulse 62 07/20/19 07:50 Resp 16 07/20/19 08:07 BP 134/73 07/20/19 07:50 Pulse Ox 98 07/20/19 07:50 Intake & Output 07/19/19 07/20/19 07/20/19 18:59 06:59 18:59 Intake Total 2719 1400 Output Total 700 400 300 Balance 2018 1000 -300 Intake: IV Fluids 1828 LR 850 NS (0.9%) 978 IVPB 171 ABX - CLINDAMYCIN 171 Oral 720 1400 Output: Urine 700 400 300 Laboratory Last Values WBC 11.6 10^3/uL (3.5-10.8) H 07/19/19 05:34 RBC 3.75 10^6 /uL (3.70-4.87) 07/19/19 05:34 Hgb 10.6 g/dL (12.0-16.0) L 07/20/19 06:19 Hct 32 % (35-47) L 07/20/19 06:19 MCV 89 fL (80-97) 07/19/19 05:34 MCH 29 pg (27-31) 07/19/19 05:34 MCHC 32 g/dL (31-36) 07/19/19 05:34 RDW 15 % (10-15) 07/19/19 05:34 Plt Count 256 10^3/uL (150-450) 07/20/19 06:19 MPV 8.0 fL (7.4-10.4) 07/20/19 06:19 Neut % (Auto) 85.8 % 07/19/19 05:34 Lymph % (Auto) 7.5 % 07/19/19 05:34 [place] % (Auto) 6.5 % 07/19/19 05:34 Eos % (Auto) 0.0 % 07/19/19 05:34 Baso % (Auto) 0.2 % 07/19/19 05:34 Absolute Neuts (auto) 10.0 10^3/ul (1.5-7.7) H 07/19/19 05:34 Absolute Lymphs (auto) 0.9 10^3/ul (1.0-4.8) L 07/19/19 05:34 Absolute Monos (auto) 0.8 10^3/ul (0-0.8) 07/19/19 05:34 Absolute Eos (auto) 0.0 10^3/ul (0-0.6) 07/19/19 05:34 Absolute Basos (auto) 0.0 10^3/ul (0-0.2) 07/19/19 05:34 Absolute Nucleated RBC 0.0 10^3/ul 07/19/19 05:34 Nucleated RBC % 0.0 07/19/19 05:34 Sodium 137 mmol/L (135-145) 07/19/19 05:34 Potassium 4.8 mmol/L (3.5-5.0) 07/19/19 05:34 Chloride 105 mmol/L (101-111) 07/19/19 05:34 Carbon Dioxide 27 mmol/L (22-32) 07/19/19 05:34 Anion Gap 5 mmol/L (2-11) 07/19/19 05:34 BUN 19 mg/dL (6-24) 07/19/19 05:34 Creatinine 0.90 mg/dL (0.51-0.95) 07/19/19 05:34 Est GFR ( Amer) 74.9 (>60) 07/19/19 05:34 Est GFR (Non-Af Amer) 61.9 (>60) 07/19/19 05:34 BUN/Creatinine Ratio 21.1 (8-20) H 07/19/19 05:34 Glucose 146 mg/dL (70-100) H 07/19/19 05:34 Calcium 8.8 mg/dL (8.6-10.3) 07/19/19 05:34
[2019-07-20] MEDS ORDERED: Bisacodyl SUPP* 10 MG SUPP PR PRN (18:10)
[2019-07-20] MEDS: Escitalopram * 20 MG TABLET PO SCH (20:55)
[2019-07-20] MEDS: Pramipexole TAB* 0.5 MG PO SCH (20:55)
[2019-07-21] MEDS: oxyCODONE/Acetamin 5/325 MG* TAB PO PRN ×2 (03:05→08:53)
[2019-07-21] MEDS: traMADol TAB* 50 MG PO PRN (06:16)
[2019-07-21] MEDS: Levothyroxine TAB* 175 MCG TAB PO SCH (06:16)
[2019-07-21] MEDS: Acetaminophen TAB* 325 MG PO SCH (06:23)
[2019-07-21] MEDS: Apixaban* 2.5 MG TAB PO SCH (08:54)
[2019-07-21] MEDS: Calcium Carbonate TAB* 1250 MG (CALCIUM 500 MG) PO SCH (08:54)
[2019-07-21] MEDS: Montelukast Sodium TAB* 10 MG PO SCH (08:54)
[2019-07-21] MEDS: Vitamin THERAPEUTIC TAB PO SCH (08:54)
[2019-07-21] MEDS: Docusate CAP* 100 MG PO SCH (08:57)
[2019-07-21] MEDS: Lisinopril TAB* 10 MG PO SCH (08:57)
[2019-07-21] MEDS: Pantoprazole TAB * 40 MG TAB PO SCH (08:57)
[2019-07-21] MEDS: Diltiazem CD CAP* 120 MG PO SCH (08:57)
[2019-07-21 08:58] LABS: Hematocrit 34 % (35-47); Hemoglobin 11.2 g/dL (12.0-16.0); Mean Platelet Volume 7.6 fL (7.4-10.4); Platelet Count 286 10^3/uL (150-450)
[2019-07-21] MEDS: Hydrochlorothiazide TAB* 25 MG PO SCH (08:58)
[2019-07-21] MEDS: Magnesium Hydroxide LIQ* 30 ML UDC PO SCH (09:02)
--- NOTE | 2019-07-21 11:08 | DS ---
Orthopedic Discharge Summary - Discharge Summary Date of Admission:07/18/19 Date of Discharge: 07/21/19 Date of Surgery: 07/18/19 Attending Orthopedic Provider: Dr. Garnica Pre-operative Diagnosis: degenerative arthritis left knee Operative Procedure: Left total knee arthroplasty Disposition of Patient: Subacute rehab facility [facility] Condition of Patient: stable History: MARCO SMITH is a 69 year old F with years of increasingly severe left knee pain. Patient has failed conservative management and has elected to undergo a left total knee replacement Hospital Course: MARCO was admitted to [facility] on 07/18/19. Patient underwent a left total knee arthroplasty without complication followed by a brief recovery in PACU and transfer to the Short Stay Surgical Unit in stable condition. Our hospitalist service, physical therapy and occupational therapy also participated in this patients care. Post-op day 1: patient was alert and in no acute distress. Dressing was clean, dry and intact. Operative extremity dorsiflexion and plantarflexion intact, sensation intact to light touch distally, DP2+. Post-op day two: dressing was changed, incision was clean , dry and intact. It was felt she would benefit from subacute rehab prior to returning home independently and was found to be a candidate for this at a facility in [place]. Patient was deemed to be medically and orthopedically stable for discharge. Physical therapy goals were met. Home Medications Medication Instructions Recorded Confirmed Type ALPRAZolam [Alprazolam] 0.5 - 1 mg PO BID PRN 07/10/19 07/10/19 History Albuterol HFA INHALER* [Ventolin 1 - 2 puff INH Q4H PRN 07/10/19 07/10/19 History HFA Inhaler*] Budesonide/Formote 160/4.5(NF) 1 puff INH BID 07/10/19 07/10/19 History [Symbicort 160/4.5 (NF)] Calcium 600 Mg 600 mg PO BID 07/10/19 07/10/19 History EPINEPHrine [Epipen 2-Pankaj] 0.3 mg IM ONCE PRN 07/10/19 07/10/19 History Escitalopram Oxalate [Lexapro] 20 mg PO BEDTIME 07/10/19 07/10/19 History Iron-Vitamin C 65/125(Nf) 1 tab PO SEE INSTRUCTIONS 07/10/19 07/10/19 History [Vitron-C (NF)] Levothyroxine Sodium [Synthroid] 200 mcg PO SEE INSTRUCTIONS 07/10/19 07/10/19 History Levothyroxine TAB* [Synthroid TAB*] 175 mcg PO SEE INSTRUCTIONS 07/10/19 History Lisinopril 20 mg PO BEDTIME 07/10/19 07/10/19 History Lisinopril/Hydrochlorothiazide 1 tab PO QAM 07/10/19 07/10/19 History [Lisinopril-Hctz 20-12.5 mg Tab] Montelukast Sodium TAB* [Singulair 10 mg PO QAM 07/10/19 07/10/19 History 10 MG TAB*] Omeprazole CAP (NF) [Prilosec CAP* 20 mg PO BID 07/10/19 07/10/19 History 20 MG] Pramipexole Di-HCl [Pramipexole 0.5 mg PO BEDTIME 07/10/19 07/10/19 History Dihydrochloride] Vitamin D3 50,000 Weekly 50,000 unit PO WEEKLY 07/10/19 07/10/19 History dilTIAZem HCl [Dilt-Xr] 120 mg PO QAM 07/10/19 07/10/19 History Acetaminophen TAB* [Tylenol TAB*] 975 mg PO Q8HR tab 07/21/19 Rx Apixaban* [Eliquis*] 2.5 mg PO BID tab 07/21/19 Rx Bisacodyl SUPP* [Dulcolax Supp*] 10 mg [place] DAILY PRN supp 07/21/19 Rx Cyclobenzaprine TAB* [Flexeril 10 10 mg PO Q6H PRN tab 07/21/19 Rx MG TAB*] Docusate CAP* [Colace Cap*] 100 mg PO BID cap 07/21/19 Rx Magnesium Hydroxide LIQ* [Milk of 30 ml PO Q6H PRN udc 07/21/19 Rx Magnesia LIQ*] diPHENhydraMINE PO* [Benadryl PO 25 mg PO Q6H PRN tab 07/21/19 Rx 25 MG TAB*] oxyCODONE/Acetamin 5/325 MG* 1 tab PO Q4H PRN tab 07/21/19 Rx [Percocet 5/325 TAB*] oxyCODONE/Acetamin 5/325 MG* 2 tab PO Q4H PRN tab 07/21/19 Rx [Percocet 5/325 TAB*] traMADol TAB* [Ultram*] 50 mg PO Q6H PRN tab 07/21/19 Rx Discharge Instructions following Orthopedic Surgery: Activity: * Weight Bearing as tolerated * Continue physical therapy and occupational therapy exercises as shown Wound care: * OK to shower on post-op day 3, no bathing, swimming, or submerging wound. * Use gentle soap, pat dry. Cover with gauze, CRISTOBAL wrap or tape. * Visiting home nurse to do wound checks. Call Orthopedic office for: * Increased drainage * Redness * Increased pain * Fever Go to ER with shortness of breath or chest pain. Diet: * Regular diet * Increase fluids and fiber to prevent constipation. * Continue to use stool softeners, call office if no bowel motion within 48 hours. Medications See Home Medication List in your packet for medications that you should take after discharge. DVT Prophylaxis: Coumadin Dosing: * Please note that you have been given 2 mg tablets. * Visiting home nurse to draw blood work for INR on Wednesday and . * You will be provided with dose instructions on Mondays and . * If you do not receive dosing instruction on dosing, please call our office right away. Please radhames dosing instructions on your calendar as they are provided to you. * Dosing: INR blood draw for further dosing instructions. Call orthopedic office if you do not receive dosing instructions. Eliquis Dosin.5 mg, 1 tab every 12 hours x 30 days Pain Control: Percocet Dosin/325 mg 1-2 tabs by mouth every 4-6 hours as needed for pain. Maximum of 10 tabs per day. Please note that Percocet contains Tylenol (acetaminophen). Maximum daily dose of Tylenol is 4000 mg from all sources. Antibiotics are required prior to any dental work. FOLLOW UP: Follow up with Dr. Garnica Within 10-14 days, call for appointment Please call our office with any questions or concerns ([phone])
[2019-07-21 11:23] VITALS: BP 129/58
[2019-07-21] MEDS: oxyCODONE TAB* 5 MG TAB PO PRN (11:37)
[2019-07-22] MEDS ORDERED: Levothyroxine TAB* 100 MCG TAB PO SCH (06:00)
[2019-07-23] MEDS ORDERED: Ergocalciferol CAP* 50000 UNIT PO SCH (09:00)
== END 2019-07-21 12:25 | DRG 470 ==
LOC: AA 12:45 → SSU 18:10
PROVIDERS: ADMIT Orthopaedic Surgery Adult Reconstructive Orthopaedic Surgery; ATTEND Orthopaedic Surgery Adult Reconstructive Orthopaedic Surgery
PROC: 0SRD0J9 Replacement of Left Knee Joint with Synthetic Substitute, Cemented, Open Approach (ICD-10-PCS; principal; 2019-07-18 15:30)
DX: M17.12 Unilateral primary osteoarthritis, left knee (principal); I51.81 Takotsubo syndrome; Z68.42 Body mass index [BMI] 45.0-49.9, adult; I10 Essential (primary) hypertension; I48.91 Unspecified atrial fibrillation; J45.909 Unspecified asthma, uncomplicated; F32.9 Major depressive disorder, single episode, unspecified; Z96.651 Presence of right artificial knee joint; M21.162 Varus deformity, not elsewhere classified, left knee; M25.462 Effusion, left knee; R20.2 Paresthesia of skin; E06.3 Autoimmune thyroiditis; K21.9 Gastro-esophageal reflux disease without esophagitis; F41.9 Anxiety disorder, unspecified; G25.81 Restless legs syndrome; E66.01 Morbid (severe) obesity due to excess calories; K44.9 Diaphragmatic hernia without obstruction or gangrene; E55.9 Vitamin D deficiency, unspecified; K75.81 Nonalcoholic steatohepatitis (NASH); E03.9 Hypothyroidism, unspecified; I95.9 Hypotension, unspecified; R09.02 Hypoxemia; Z96.693 Finger-joint replacement, bilateral; Z88.1 Allergy status to other antibiotic agents; Z83.3 Family history of diabetes mellitus; Z86.718 Personal history of other venous thrombosis and embolism; Z82.49 Family history of ischemic heart disease and other diseases of the circulatory system; Z80.0 Family history of malignant neoplasm of digestive organs; Z80.41 Family history of malignant neoplasm of ovary
CPT/HCPCS: 36415; 80048; 85014; 85018; 85025; 85049; 88305; 88311; 90686; A9270-GY; C1776; G8978-GP-CJ; G8979-GP-CI; J0360; J1170; J1885; J2250; J2270; J2704; J2795; J3010; J3490; J8540